=== PATIENT | male | born 1940 | race Caucasian/White ===

== ENCOUNTER 2018-06-12 13:41 | Inpatient (IN) | payer MEDICARE, OTHER ==
[~2018-06-12] VITALS: Ht 180.3 cm; Wt 97.2 kg
--- NOTE | 2018-06-12 14:10 | NUR ---
pt bib air ambulance to ed for chf exacerbation x 1 month. severe weeping bilateral lower leg edema and erythema. pt pleasent, calm and cooperative, but very poor historian. connected to all monitors. vss. call light within reach. awaiting md assessment.
[2018-06-12 14:32] LABS: BASOPHILS # (AUTO) 0.01 x10^3/uL (0-0.1); BASOPHILS % (AUTO) 0 % (0-1); EOSINOPHILS # (AUTO) 0.04 x10^3/uL (0-0.4); EOSINOPHILS % (AUTO) 1 % (1-7); LYMPHOCYTES # (AUTO) 0.17 x10^3/uL (1-3.4); LYMPHOCYTES % (AUTO) 4 % (22-44); MD NO; MEAN CORPUSCULAR HEMOGLOBIN 33.8 pg (27.5-34.5); MEAN CORPUSCULAR HGB CONC 33.7 g/dL (33.2-36.2); MEAN CORPUSCULAR VOLUME 100.1 fL (81-97); MEAN PLATELET VOLUME 7.7 fL (7.4-10.4); MONOCYTES # (AUTO) 0.45 x10^3/uL (0.2-0.8); MONOCYTES % (AUTO) 10 % (2-9); NEUTROPHILS # (AUTO) 3.81 x10^3/uL (1.8-6.8); NEUTROPHILS % (AUTO) 85 % (42-75); PLATELET COUNT 184 x10^3/uL (130-400); RED BLOOD COUNT 3.03 x10^6/uL (4.38-5.82); RED CELL DISTRIBUTION WIDTH 14.8 % (9.4-14.8)
[2018-06-12 14:43] LABS: ALBUMIN 2.8 g/dL (3.4-5.0); ANION GAP 13 mmol/L (5-15); CALCIUM 8.3 mg/dL (8.5-10.1); CHLORIDE 92 mmol/L (98-107)
[2018-06-12 14:50] LABS: CREATININE 1.73 mg/dL (0.7-1.3); TROPONIN I 0.021 ng/mL (0.000-0.045)
--- NOTE | 2018-06-12 15:01 | NUR ---
pt resting in bed. call light within reach. awaiting bed assignment. no needs at this time. vss.
[2018-06-12] MEDS ORDERED: NITROGLYCERIN 0.4 MG BOTTLE (25 TABS) SL PRN (15:30)
[2018-06-12] MEDS ORDERED: LABETALOL 5MG/ML, 20ML IVPush PRN (15:30)
[2018-06-12] MEDS ORDERED: ACETAMINOPHEN 325 MG TABLET PO PRN (15:30)
[2018-06-12 15:36] LABS: INTERNATIONAL NORMALIZED RATIO 1.06 (0.93-1.1); PROTHROMBIN TIME 11.2 Seconds (9.6-11.5)
[2018-06-12 15:53] LABS: THYROID STIMULATING HORMONE 4.19 mIU/L (0.358-3.740)
[2018-06-12 15:54] VITALS: BP 118/74
[2018-06-12] MEDS ORDERED: PLEASE ENTER ALLERGIES MC SCH (16:00)
[2018-06-12] MEDS ORDERED: ATEN25TA PO (17:21)
[2018-06-12] MEDS ORDERED: AMLO5TAB10 PO (17:21)
[2018-06-12] MEDS ORDERED: LOSA100T14 PO (17:21)
[2018-06-12] MEDS ORDERED: ALLO100T64 PO (17:21)
[2018-06-12] MEDS ORDERED: ATOR10TA9 PO (17:21)
[2018-06-12] MEDS ORDERED: METO5TAB5 PO (17:21)
[2018-06-12] MEDS ORDERED: MAGN400T26 PO (17:21)
[2018-06-12] MEDS ORDERED: FURO40TA6 PO (17:21)
[2018-06-12] MEDS: HEPARIN 5,000 UNITS/ML, 1ML SQ SCH ×2 (17:27→23:54)
[2018-06-12] MEDS: FUROSEMIDE 40 MG/4 ML IV SCH (17:27)
[2018-06-12 20:40] LABS: ANION GAP 11 mmol/L (5-15); CALCIUM 8.5 mg/dL (8.5-10.1); CHLORIDE 95 mmol/L (98-107); CREATININE 1.68 mg/dL (0.7-1.3)
[2018-06-12 20:44] LABS: TROPONIN I 0.024 ng/mL (0.000-0.045)
[2018-06-12 21:13] VITALS: BP 104/57
[2018-06-12] MEDS: ATORVASTATIN 80 MG TABLET PO SCH (22:33)
[2018-06-12] MEDS: DOXYCYCLINE 100MG TABLET PO SCH (22:33)
[2018-06-12] MEDS: AMOXICILLIN/CLAV 875-125MG TABLET PO SCH (22:34)
[2018-06-13 00:09] VITALS: BP 118/61
[2018-06-13 02:01] LABS: CREATININE,URINE RANDOM 28.9 mg/dL
[2018-06-13 02:11] LABS: BASOPHILS # (AUTO) 0.01 x10^3/uL (0-0.1); BASOPHILS % (AUTO) 0 % (0-1); EOSINOPHILS # (AUTO) 0.15 x10^3/uL (0-0.4); EOSINOPHILS % (AUTO) 4 % (1-7); LYMPHOCYTES # (AUTO) 0.27 x10^3/uL (1-3.4); LYMPHOCYTES % (AUTO) 7 % (22-44); MD NO; MEAN CORPUSCULAR HEMOGLOBIN 33.7 pg (27.5-34.5); MEAN CORPUSCULAR HGB CONC 33.5 g/dL (33.2-36.2); MEAN CORPUSCULAR VOLUME 100.7 fL (81-97); MEAN PLATELET VOLUME 7.9 fL (7.4-10.4); MONOCYTES # (AUTO) 0.63 x10^3/uL (0.2-0.8); MONOCYTES % (AUTO) 16 % (2-9); NEUTROPHILS # (AUTO) 2.94 x10^3/uL (1.8-6.8); NEUTROPHILS % (AUTO) 74 % (42-75); PLATELET COUNT 168 x10^3/uL (130-400); RED BLOOD COUNT 2.98 x10^6/uL (4.38-5.82); RED CELL DISTRIBUTION WIDTH 15.4 % (9.4-14.8)
[2018-06-13 02:25] LABS: ALANINE AMINOTRANSFERASE 19 U/L (12-78); ALBUMIN 2.7 g/dL (3.4-5.0); ANION GAP 8 mmol/L (5-15); CALCIUM 8.4 mg/dL (8.5-10.1); CHLORIDE 95 mmol/L (98-107); CREATININE 1.73 mg/dL (0.7-1.3)
[2018-06-13 02:27] LABS: TROPONIN I 0.025 ng/mL (0.000-0.045)
[2018-06-13 02:35] LABS: ALKALINE PHOSPHATASE 94 U/L (45-117); BILIRUBIN,TOTAL 0.5 mg/dL (0.2-1.0); TOTAL PROTEIN 6.7 g/dL (6.4-8.2)
[2018-06-13] MEDS: FUROSEMIDE 40 MG/4 ML IV SCH ×2 (07:29→17:25)
[2018-06-13] MEDS: HEPARIN 5,000 UNITS/ML, 1ML SQ SCH ×2 (07:29→17:25)
[2018-06-13 07:32] VITALS: BP 108/65
[2018-06-13 07:40] VITALS: BP 114/67
[2018-06-13] MEDS ORDERED: ASPIRIN 81 MG TABLET CHEW PO SCH (09:00)
[2018-06-13] MEDS: AMOXICILLIN/CLAV 875-125MG TABLET PO SCH ×2 (09:48→22:16)
[2018-06-13] MEDS: DOXYCYCLINE 100MG TABLET PO SCH ×2 (09:48→22:16)
[2018-06-13] MEDS: ALLOPURINOL 100 MG TABLET PO SCH (09:48)
[2018-06-13] MEDS: ASPIRIN 325 MG TABLET PO SCH (09:48)
[2018-06-13] MEDS: THIAMINE 100MG TABLET PO SCH (12:35)
[2018-06-13 12:42] VITALS: BP 122/60
[2018-06-13] MEDS: CARVEDILOL 3.125 MG TABLET PO SCH (17:24)
[2018-06-13 20:06] VITALS: BP 116/73
[2018-06-13] MEDS: ATORVASTATIN 80 MG TABLET PO SCH (22:16)
[2018-06-14] MEDS: HEPARIN 5,000 UNITS/ML, 1ML SQ SCH ×3 (01:35→18:29)
[2018-06-14 01:43] VITALS: BP 110/61
[2018-06-14 06:10] LABS: BASOPHILS # (AUTO) 0.02 x10^3/uL (0-0.1); BASOPHILS % (AUTO) 1 % (0-1); EOSINOPHILS # (AUTO) 0.14 x10^3/uL (0-0.4); EOSINOPHILS % (AUTO) 4 % (1-7); LYMPHOCYTES # (AUTO) 0.22 x10^3/uL (1-3.4); LYMPHOCYTES % (AUTO) 7 % (22-44); MD NO; MEAN CORPUSCULAR HGB CONC 34.2 g/dL (33.2-36.2); MEAN CORPUSCULAR VOLUME 99.3 fL (81-97); MEAN PLATELET VOLUME 7.5 fL (7.4-10.4); MONOCYTES # (AUTO) 0.51 x10^3/uL (0.2-0.8); MONOCYTES % (AUTO) 15 % (2-9); NEUTROPHILS # (AUTO) 2.43 x10^3/uL (1.8-6.8); NEUTROPHILS % (AUTO) 73 % (42-75); PLATELET COUNT 179 x10^3/uL (130-400); RED CELL DISTRIBUTION WIDTH 15.3 % (9.4-14.8)
[2018-06-14 06:24] LABS: CHLORIDE 96 mmol/L (98-107)
[2018-06-14 06:31] LABS: ALANINE AMINOTRANSFERASE 15 U/L (12-78); ALBUMIN 2.4 g/dL (3.4-5.0); ALKALINE PHOSPHATASE 84 U/L (45-117); ANION GAP 11 mmol/L (5-15); BILIRUBIN,TOTAL 0.7 mg/dL (0.2-1.0); CALCIUM 8.4 mg/dL (8.5-10.1); CREATININE 1.51 mg/dL (0.7-1.3); TOTAL PROTEIN 6.1 g/dL (6.4-8.2)
[2018-06-14] MEDS: CARVEDILOL 3.125 MG TABLET PO SCH ×2 (06:53→18:08)
[2018-06-14] MEDS: FUROSEMIDE 40 MG/4 ML IV SCH ×2 (06:53→18:08)
[2018-06-14] MEDS ORDERED: POTASSIUM CHLORIDE 20 MEQ TAB.ER.PRT PO ONE (07:00)
[2018-06-14 07:05] VITALS: BP 121/61
[2018-06-14] MEDS: AMOXICILLIN/CLAV 875-125MG TABLET PO SCH ×2 (07:48→21:46)
[2018-06-14] MEDS: ALLOPURINOL 100 MG TABLET PO SCH (07:48)
[2018-06-14] MEDS: DOXYCYCLINE 100MG TABLET PO SCH ×2 (07:49→21:47)
[2018-06-14] MEDS: ASPIRIN 325 MG TABLET PO SCH (07:49)
[2018-06-14] MEDS: THIAMINE 100MG TABLET PO SCH (07:49)
[2018-06-14] MEDS ORDERED: MAGNESIUM SULFATE PMX 2GM/50ML 50 ML IV ONE ×2 (11:30→13:00)
[2018-06-14 12:07] VITALS: BP 112/74
[2018-06-14] MEDS: SPIRONOLACTONE 25 MG TABLET PO SCH (13:20)
[2018-06-14 19:05] VITALS: BP 128/69
[2018-06-14] MEDS: CAPTOPRIL 12.5 MG TABLET PO SCH (21:47)
[2018-06-14] MEDS: ATORVASTATIN 80 MG TABLET PO SCH (21:47)
[2018-06-15 02:03] VITALS: BP 124/77
[2018-06-15] MEDS: HEPARIN 5,000 UNITS/ML, 1ML SQ SCH ×2 (02:29→10:30)
[2018-06-15 05:47] LABS: ANION GAP 9 mmol/L (5-15); CALCIUM 8.8 mg/dL (8.5-10.1); CHLORIDE 98 mmol/L (98-107)
[2018-06-15 05:49] LABS: % IRON SATURATION 11 % (20-55); CREATININE 1.58 mg/dL (0.7-1.3); IRON LEVEL 28 mcg/dL (65-175); TOTAL IRON BINDING CAPACITY 248 mcg/dL (250-450)
[2018-06-15] MEDS: FUROSEMIDE 40 MG/4 ML IV SCH (06:44)
[2018-06-15] MEDS: CARVEDILOL 3.125 MG TABLET PO SCH ×2 (06:44→18:12)
[2018-06-15] MEDS ORDERED: MAGNESIUM SULFATE PMX 2GM/50ML 50 ML IV ONE ×3 (07:30→12:30)
[2018-06-15 09:07] VITALS: BP 119/75
[2018-06-15] MEDS: ASPIRIN 81 MG TABLET EC PO SCH (09:28)
[2018-06-15] MEDS: DOXYCYCLINE 100MG TABLET PO SCH ×2 (09:29→21:37)
[2018-06-15] MEDS: SPIRONOLACTONE 25 MG TABLET PO SCH (09:29)
[2018-06-15] MEDS: ALLOPURINOL 100 MG TABLET PO SCH (09:30)
[2018-06-15] MEDS: CAPTOPRIL 12.5 MG TABLET PO SCH ×2 (09:31→21:00)
[2018-06-15] MEDS: THIAMINE 100MG TABLET PO SCH (09:31)
[2018-06-15] MEDS: AMOXICILLIN/CLAV 875-125MG TABLET PO SCH ×2 (09:32→21:37)
[2018-06-15] MEDS: OXYMETAZOLINE NASAL SPRAY 0.05%, 15ML NAS SCH ×2 (09:32→21:38)
[2018-06-15] MEDS ORDERED: POTASSIUM CHLORIDE 20 MEQ TAB.ER.PRT PO ONE (12:30)
[2018-06-15] MEDS: IRON SUCROSE COMPLEX 100MG/5ML IV SCH (13:03)
[2018-06-15 13:49] VITALS: BP 131/72
[2018-06-15] MEDS: FERROUS GLUCONATE 324 MG TABLET PO SCH (18:12)
[2018-06-15 18:57] VITALS: BP 117/76
[2018-06-15] MEDS: ATORVASTATIN 80 MG TABLET PO SCH (21:37)
[2018-06-16 02:45] VITALS: BP 118/75
[2018-06-16 05:44] LABS: ANION GAP 7 mmol/L (5-15); CALCIUM 8.8 mg/dL (8.5-10.1); CHLORIDE 101 mmol/L (98-107); CREATININE 1.34 mg/dL (0.7-1.3)
[2018-06-16 05:48] LABS: BASOPHILS % (AUTO) 0 % (0-1); EOSINOPHILS # (AUTO) 0.03 x10^3/uL (0-0.4); EOSINOPHILS % (AUTO) 1 % (1-7); LYMPHOCYTES # (AUTO) 0.23 x10^3/uL (1-3.4); LYMPHOCYTES % (AUTO) 4 % (22-44); MD NO; MEAN CORPUSCULAR HEMOGLOBIN 32.9 pg (27.5-34.5); MEAN CORPUSCULAR HGB CONC 32.5 g/dL (33.2-36.2); MEAN CORPUSCULAR VOLUME 101.3 fL (81-97); MONOCYTES # (AUTO) 0.51 x10^3/uL (0.2-0.8); MONOCYTES % (AUTO) 10 % (2-9); NEUTROPHILS # (AUTO) 4.51 x10^3/uL (1.8-6.8); NEUTROPHILS % (AUTO) 85 % (42-75); PLATELET COUNT 201 x10^3/uL (130-400); RED CELL DISTRIBUTION WIDTH 15.9 % (9.4-14.8)
[2018-06-16] MEDS: CARVEDILOL 3.125 MG TABLET PO SCH ×2 (06:12→17:57)
[2018-06-16 07:20] VITALS: BP 133/70
[2018-06-16] MEDS ORDERED: FUROSEMIDE 40 MG/4 ML IV SCH (09:00)
[2018-06-16] MEDS: AMOXICILLIN/CLAV 875-125MG TABLET PO SCH ×2 (09:38→21:15)
[2018-06-16] MEDS: IRON SUCROSE COMPLEX 100MG/5ML IV SCH (09:38)
[2018-06-16] MEDS: ASPIRIN 81 MG TABLET EC PO SCH (09:38)
[2018-06-16] MEDS: SPIRONOLACTONE 25 MG TABLET PO SCH (09:39)
[2018-06-16] MEDS: DOXYCYCLINE 100MG TABLET PO SCH ×2 (09:39→21:15)
[2018-06-16] MEDS: CAPTOPRIL 12.5 MG TABLET PO SCH (09:39)
[2018-06-16] MEDS: THIAMINE 100MG TABLET PO SCH (09:39)
[2018-06-16] MEDS: ALLOPURINOL 100 MG TABLET PO SCH (09:39)
[2018-06-16] MEDS: OXYMETAZOLINE NASAL SPRAY 0.05%, 15ML NAS SCH ×2 (09:40→21:16)
[2018-06-16] MEDS ORDERED: OMNIPAQUE 350 MG/ML, 150 ML BOTTLE ONE (11:20)
[2018-06-16] MEDS: ONDANSETRON 2MG/ML, 2ML IVPush PRN (11:36)
[2018-06-16 13:35] VITALS: BP 121/75
[2018-06-16] MEDS ORDERED: LIDOCAINE-MPF 1%, 5ML ONE (15:36)
[2018-06-16] MEDS ORDERED: DIGOXIN 0.25 MG/ML, 2ML IVPush ONE (16:00)
[2018-06-16] MEDS: FERROUS GLUCONATE 324 MG TABLET PO SCH (17:57)
[2018-06-16 20:03] VITALS: BP 115/73
[2018-06-16] MEDS ORDERED: CAPTOPRIL 12.5 MG TABLET PO SCH (21:00)
[2018-06-16] MEDS ORDERED: APIXABAN 5 MG TABLET PO SCH (21:00)
[2018-06-16] MEDS: ATORVASTATIN 80 MG TABLET PO SCH (21:15)
[2018-06-17 00:18] VITALS: BP 136/37
[2018-06-17] MEDS: CARVEDILOL 3.125 MG TABLET PO SCH ×2 (05:29→17:45)
[2018-06-17 05:36] LABS: ANION GAP 7 mmol/L (5-15); CALCIUM 8.7 mg/dL (8.5-10.1); CHLORIDE 103 mmol/L (98-107); CREATININE 1.75 mg/dL (0.7-1.3)
[2018-06-17 07:30] VITALS: BP 103/68
[2018-06-17] MEDS ORDERED: REGADENOSON 0.4 MG/5 ML SYRINGE ONE (08:11)
[2018-06-17] MEDS: ALLOPURINOL 100 MG TABLET PO SCH (09:31)
[2018-06-17] MEDS: ASPIRIN 81 MG TABLET EC PO SCH (09:31)
[2018-06-17] MEDS: AMOXICILLIN/CLAV 875-125MG TABLET PO SCH ×2 (09:31→20:36)
[2018-06-17] MEDS: DOXYCYCLINE 100MG TABLET PO SCH ×2 (09:31→20:36)
[2018-06-17] MEDS: THIAMINE 100MG TABLET PO SCH (09:31)
[2018-06-17] MEDS: OXYMETAZOLINE NASAL SPRAY 0.05%, 15ML NAS SCH ×2 (09:32→20:36)
[2018-06-17 14:07] VITALS: BP 111/66
[2018-06-17] MEDS: IRON SUCROSE COMPLEX 100MG/5ML IV SCH (14:38)
[2018-06-17] MEDS: FERROUS GLUCONATE 324 MG TABLET PO SCH (17:45)
[2018-06-17 18:57] VITALS: BP 119/74
[2018-06-17] MEDS: ATORVASTATIN 80 MG TABLET PO SCH (20:36)
[2018-06-18 00:25] VITALS: BP 119/69
[2018-06-18] MEDS: CARVEDILOL 3.125 MG TABLET PO SCH ×2 (06:08→17:03)
[2018-06-18 07:50] VITALS: BP 116/70
[2018-06-18 08:11] LABS: ANION GAP 6 mmol/L (5-15); CALCIUM 8.1 mg/dL (8.5-10.1); CHLORIDE 103 mmol/L (98-107); CREATININE 2.95 mg/dL (0.7-1.3)
[2018-06-18] MEDS ORDERED: REGADENOSON 0.4 MG/5 ML SYRINGE ONE (08:16)
[2018-06-18] MEDS: DOXYCYCLINE 100MG TABLET PO SCH ×2 (09:35→20:10)
[2018-06-18] MEDS: ASPIRIN 81 MG TABLET EC PO SCH (09:35)
[2018-06-18] MEDS: IRON SUCROSE COMPLEX 100MG/5ML IV SCH (09:35)
[2018-06-18] MEDS: OXYMETAZOLINE NASAL SPRAY 0.05%, 15ML NAS SCH (09:35)
[2018-06-18] MEDS: ALLOPURINOL 100 MG TABLET PO SCH (09:35)
[2018-06-18] MEDS: THIAMINE 100MG TABLET PO SCH (09:35)
[2018-06-18] MEDS: SODIUM CHLORIDE 0.9% 1,000 ML IV SCH ×2 (09:39→20:11)
[2018-06-18 14:00] VITALS: BP 115/74
[2018-06-18 17:02] VITALS: BP 114/66
[2018-06-18] MEDS: FERROUS GLUCONATE 324 MG TABLET PO SCH (17:03)
[2018-06-18 19:41] VITALS: BP 128/60
[2018-06-18] MEDS: AMOXICILLIN/CLAV 875-125MG TABLET PO SCH (20:09)
[2018-06-18] MEDS: ATORVASTATIN 80 MG TABLET PO SCH (20:10)
[2018-06-19 01:48] VITALS: BP 105/61
[2018-06-19] MEDS: CARVEDILOL 3.125 MG TABLET PO SCH ×2 (05:22→18:13)
[2018-06-19 06:08] LABS: ANION GAP 9 mmol/L (5-15); CHLORIDE 103 mmol/L (98-107)
[2018-06-19 06:10] LABS: CREATININE 3.63 mg/dL (0.7-1.3)
[2018-06-19 07:07] VITALS: BP 106/65
[2018-06-19] MEDS: IRON SUCROSE COMPLEX 100MG/5ML IV SCH (10:19)
[2018-06-19] MEDS: ONDANSETRON 2MG/ML, 2ML IVPush PRN (10:19)
[2018-06-19] MEDS: ASPIRIN 81 MG TABLET EC PO SCH (10:20)
[2018-06-19] MEDS: THIAMINE 100MG TABLET PO SCH (10:20)
[2018-06-19] MEDS: DOXYCYCLINE 100MG TABLET PO SCH ×2 (13:40→21:00)
[2018-06-19] MEDS: AMOXICILLIN/CLAV 875-125MG TABLET PO SCH ×2 (13:40→21:00)
[2018-06-19 14:08] VITALS: BP 104/64
[2018-06-19] MEDS: FERROUS GLUCONATE 324 MG TABLET PO SCH (18:13)
[2018-06-19 20:03] VITALS: BP 119/65
[2018-06-19] MEDS: ATORVASTATIN 80 MG TABLET PO SCH (21:00)
[2018-06-19] MEDS: SODIUM CHLORIDE NASAL SPRAY 45ML BOTTLE NAS SCH (22:31)
[2018-06-20 02:32] VITALS: BP 117/75
[2018-06-20] MEDS: CARVEDILOL 3.125 MG TABLET PO SCH ×2 (05:28→17:35)
[2018-06-20 06:04] LABS: CALCIUM 7.8 mg/dL (8.5-10.1); CHLORIDE 99 mmol/L (98-107)
[2018-06-20 06:08] LABS: ANION GAP 9 mmol/L (5-15); CREATININE 4.67 mg/dL (0.7-1.3)
[2018-06-20 07:03] VITALS: BP 130/72
[2018-06-20] MEDS: IRON SUCROSE COMPLEX 100MG/5ML IV SCH (08:47)
[2018-06-20] MEDS: SODIUM CHLORIDE NASAL SPRAY 45ML BOTTLE NAS SCH ×2 (08:54→20:24)
[2018-06-20] MEDS: THIAMINE 100MG TABLET PO SCH (08:55)
[2018-06-20] MEDS: AMOXICILLIN/CLAV 875-125MG TABLET PO SCH ×2 (08:55→20:24)
[2018-06-20] MEDS: DOXYCYCLINE 100MG TABLET PO SCH ×2 (08:55→20:24)
[2018-06-20] MEDS: ASPIRIN 81 MG TABLET EC PO SCH ×2 (08:55→19:54)
[2018-06-20 12:19] VITALS: BP 129/73
[2018-06-20] MEDS: FERROUS GLUCONATE 324 MG TABLET PO SCH (17:35)
[2018-06-20] MEDS: ATORVASTATIN 80 MG TABLET PO SCH (20:24)
[2018-06-20 20:44] VITALS: BP 134/72
[2018-06-21 01:55] VITALS: BP 120/68
[2018-06-21] MEDS: CARVEDILOL 3.125 MG TABLET PO SCH ×2 (05:40→18:03)
[2018-06-21 06:16] LABS: INTERNATIONAL NORMALIZED RATIO 1.12 (0.93-1.1); PROTHROMBIN TIME 11.8 Seconds (9.6-11.5)
[2018-06-21 07:27] VITALS: BP 109/50
[2018-06-21 08:02] LABS: ALBUMIN 2.2 g/dL (3.4-5.0); ANION GAP 11 mmol/L (5-15); CALCIUM 8.1 mg/dL (8.5-10.1); CHLORIDE 100 mmol/L (98-107)
[2018-06-21] MEDS: IRON SUCROSE COMPLEX 100MG/5ML IV SCH (08:03)
[2018-06-21] MEDS: ALLOPURINOL 100 MG TABLET PO SCH (08:05)
[2018-06-21 08:06] LABS: ALANINE AMINOTRANSFERASE 20 U/L (12-78); ALKALINE PHOSPHATASE 85 U/L (45-117); BILIRUBIN,TOTAL 0.4 mg/dL (0.2-1.0); CREATININE 4.91 mg/dL (0.7-1.3); TOTAL PROTEIN 5.5 g/dL (6.4-8.2)
[2018-06-21] MEDS: THIAMINE 100MG TABLET PO SCH (08:16)
[2018-06-21] MEDS: AMOXICILLIN/CLAV 875-125MG TABLET PO SCH ×2 (08:16→21:00)
[2018-06-21] MEDS: DOXYCYCLINE 100MG TABLET PO SCH ×2 (08:16→21:00)
[2018-06-21] MEDS: SODIUM CHLORIDE NASAL SPRAY 45ML BOTTLE NAS SCH ×2 (08:18→21:00)
[2018-06-21] MEDS ORDERED: LIDOCAINE 1%, 20ML ONE (09:12)
[2018-06-21] MEDS ORDERED: FLUMAZENIL 0.1 MG/1 ML, 5ML ONE (09:27)
[2018-06-21] MEDS ORDERED: MIDAZOLAM 1 MG/ML, 5ML ONE (09:27)
[2018-06-21] MEDS ORDERED: FENTANYL PF 100 MCG/2ML ONE (09:27)
[2018-06-21] MEDS ORDERED: NALOXONE 1 MG/ML, 2ML ONE (09:27)
[2018-06-21] MEDS ORDERED: CEFAZOLIN PMX 1GM/50ML 50 ML IVPB SCH (10:00)
[2018-06-21] MEDS ORDERED: CEFAZOLIN PMX 1GM/50ML 50 ML IVPB ONE (10:30)
[2018-06-21 13:09] VITALS: BP 127/79
[2018-06-21] MEDS: FERROUS GLUCONATE 324 MG TABLET PO SCH (18:03)
[2018-06-21 19:20] VITALS: BP 148/75
[2018-06-21] MEDS: ATORVASTATIN 80 MG TABLET PO SCH (21:00)
[2018-06-22 01:30] VITALS: BP 127/65
[2018-06-22 05:25] VITALS: BP 130/78
[2018-06-22] MEDS: CARVEDILOL 3.125 MG TABLET PO SCH ×2 (05:26→18:26)
[2018-06-22 06:47] LABS: BASOPHILS # (AUTO) 0.03 x10^3/uL (0-0.1); BASOPHILS % (AUTO) 0 % (0-1); EOSINOPHILS # (AUTO) 0.31 x10^3/uL (0-0.4); EOSINOPHILS % (AUTO) 5 % (1-7); LYMPHOCYTES % (AUTO) 5 % (22-44); MD NO; MEAN CORPUSCULAR HEMOGLOBIN 32.4 pg (27.5-34.5); MEAN CORPUSCULAR HGB CONC 32.3 g/dL (33.2-36.2); MEAN CORPUSCULAR VOLUME 100.5 fL (81-97); MEAN PLATELET VOLUME 8.2 fL (7.4-10.4); MONOCYTES # (AUTO) 0.94 x10^3/uL (0.2-0.8); MONOCYTES % (AUTO) 15 % (2-9); NEUTROPHILS # (AUTO) 4.77 x10^3/uL (1.8-6.8); NEUTROPHILS % (AUTO) 75 % (42-75); PLATELET COUNT 180 x10^3/uL (130-400); RED BLOOD COUNT 3.15 x10^6/uL (4.38-5.82); RED CELL DISTRIBUTION WIDTH 15.4 % (9.4-14.8)
[2018-06-22 06:59] LABS: ANION GAP 8 mmol/L (5-15); CALCIUM 8.4 mg/dL (8.5-10.1); CHLORIDE 104 mmol/L (98-107); CREATININE 3.35 mg/dL (0.7-1.3)
[2018-06-22 07:59] VITALS: BP 128/68
[2018-06-22] MEDS: SODIUM CHLORIDE NASAL SPRAY 45ML BOTTLE NAS SCH ×2 (09:00→20:41)
[2018-06-22] MEDS: ALLOPURINOL 100 MG TABLET PO SCH (11:46)
[2018-06-22] MEDS: AMOXICILLIN/CLAV 875-125MG TABLET PO SCH ×2 (11:46→20:41)
[2018-06-22] MEDS: ASPIRIN 81 MG TABLET EC PO SCH (11:46)
[2018-06-22] MEDS: DOXYCYCLINE 100MG TABLET PO SCH ×2 (11:47→20:42)
[2018-06-22] MEDS: THIAMINE 100MG TABLET PO SCH (11:47)
[2018-06-22] MEDS: IRON SUCROSE COMPLEX 100MG/5ML IV SCH (11:47)
[2018-06-22 13:45] VITALS: BP 128/68
[2018-06-22] MEDS: FERROUS GLUCONATE 324 MG TABLET PO SCH (16:28)
[2018-06-22 19:44] VITALS: BP 124/72
[2018-06-22] MEDS: ATORVASTATIN 80 MG TABLET PO SCH (20:42)
[2018-06-23 00:50] VITALS: BP 130/75
[2018-06-23 05:18] VITALS: BP 125/55
[2018-06-23] MEDS: CARVEDILOL 3.125 MG TABLET PO SCH ×2 (05:19→17:05)
[2018-06-23 05:45] LABS: CHLORIDE 105 mmol/L (98-107)
[2018-06-23 05:54] LABS: ANION GAP 8 mmol/L (5-15); CALCIUM 8.2 mg/dL (8.5-10.1); CREATININE 2.05 mg/dL (0.7-1.3)
[2018-06-23 07:42] VITALS: BP 108/70
[2018-06-23] MEDS: SODIUM CHLORIDE NASAL SPRAY 45ML BOTTLE NAS SCH (09:38)
[2018-06-23] MEDS: DOXYCYCLINE 100MG TABLET PO SCH (09:38)
[2018-06-23] MEDS: IRON SUCROSE COMPLEX 100MG/5ML IV SCH (09:38)
[2018-06-23] MEDS: ALLOPURINOL 100 MG TABLET PO SCH (09:38)
[2018-06-23] MEDS: ASPIRIN 81 MG TABLET EC PO SCH ×2 (09:38→10:30)
[2018-06-23 14:00] VITALS: BP 111/69
[2018-06-23] MEDS: THIAMINE 100MG TABLET PO SCH (14:03)
[2018-06-23] MEDS: AMOXICILLIN/CLAV 875-125MG TABLET PO SCH (14:03)
[2018-06-23] MEDS ORDERED: ATOR-2 PO (15:51)
[2018-06-23] MEDS ORDERED: AMOX1TAB12 PO (15:51)
[2018-06-23] MEDS ORDERED: FERR325T16 PO (15:51)
[2018-06-23] MEDS ORDERED: CARV3.1212 PO (15:51)
[2018-06-23] MEDS ORDERED: ALLO100T30 PO (15:51)
[2018-06-23] MEDS ORDERED: DOXY100T PO (15:51)
[2018-06-23] MEDS: FERROUS GLUCONATE 324 MG TABLET PO SCH (17:05)
== END 2018-06-23 17:50 | disposition home health service (06) | DRG 286 ==
LOC: ED 14:30 → EDIP 14:31 → ED 14:34 → 5SO 15:40
PROVIDERS: ADMIT Internal Medicine; ATTEND Internal Medicine
PROC: 0W9B3ZZ Drainage of Left Pleural Cavity, Percutaneous Approach (ICD-10-PCS; 2018-06-16)
PROC: 0W993ZZ Drainage of Right Pleural Cavity, Percutaneous Approach (ICD-10-PCS; 2018-06-16)
PROC: 0T9B70Z Drainage of Bladder with Drainage Device, Via Natural or Artificial Opening (ICD-10-PCS; 2018-06-16)
PROC: 5A1D70Z Performance of Urinary Filtration, Intermittent, Less than 6 Hours Per Day (ICD-10-PCS; principal; 2018-06-21)
PROC: B2141ZZ Fluoroscopy of Right Heart using Low Osmolar Contrast (ICD-10-PCS; 2018-06-21)
PROC: 02H633Z Insertion of Infusion Device into Right Atrium, Percutaneous Approach (ICD-10-PCS; 2018-06-21)
PROC: B244ZZZ Ultrasonography of Right Heart (ICD-10-PCS; 2018-06-21)
PROC: 5A1D70Z Performance of Urinary Filtration, Intermittent, Less than 6 Hours Per Day (ICD-10-PCS; 2018-06-22)
DX: I11.0 Hypertensive heart disease with heart failure (principal); J96.01 Acute respiratory failure with hypoxia; E87.1 Hypo-osmolality and hyponatremia; D68.69 Other thrombophilia; E44.1 Mild protein-calorie malnutrition; I48.1 Persistent atrial fibrillation; L03.115 Cellulitis of right lower limb; L03.116 Cellulitis of left lower limb; N17.9 Acute kidney failure, unspecified; D50.9 Iron deficiency anemia, unspecified; D53.9 Nutritional anemia, unspecified; E11.22 Type 2 diabetes mellitus with diabetic chronic kidney disease; Z68.29 Body mass index [BMI] 29.0-29.9, adult; E78.00 Pure hypercholesterolemia, unspecified; E78.5 Hyperlipidemia, unspecified; E83.51 Hypocalcemia; F10.10 Alcohol abuse, uncomplicated; I13.0 Hypertensive heart and chronic kidney disease with heart failure and stage 1 through stage 4 chronic kidney disease, or unspecified chronic kidney disease; I25.10 Atherosclerotic heart disease of native coronary artery without angina pectoris; I34.0 Nonrheumatic mitral (valve) insufficiency; I42.9 Cardiomyopathy, unspecified; I44.7 Left bundle-branch block, unspecified; I48.0 Paroxysmal atrial fibrillation; I50.23 Acute on chronic systolic (congestive) heart failure; N14.1 Nephropathy induced by other drugs, medicaments and biological substances; N18.3 Chronic kidney disease, stage 3 (moderate); N50.89 Other specified disorders of the male genital organs; R31.0 Gross hematuria; T50.8X5A Adverse effect of diagnostic agents, initial encounter; Z87.891 Personal history of nicotine dependence; I25.2 Old myocardial infarction; Z91.14 Patient's other noncompliance with medication regimen
CPT/HCPCS: 32555; 36415; 36558; 71046; 74178; 76770; 76937; 77001; 78452; 80048; 80053; 80074; 80307; 81003; 82040; 82306; 82436; 82570; 82607; 83540; 83550; 83615; 83735; 83880; 83930; 83935; 83970; 84100; 84133; 84157; 84300; 84439; 84443; 84484; 85025; 85610; 85730; 86480; 86706; 87070; 87086; 87205; 93005; 93017; 99156; 99157; 99285; C1894; C8929; G0103; G0378; J1644; J1756; J1940; J2250; J2405; J2785; J3010; J3490; Q9967; A9502; C1750; C9898; J1160; J1642; J2310; J3475; J7030